=== PATIENT | male | born 1985 | race African-American/Black ===

== ENCOUNTER 2017-08-17 08:32 | Emergency (ER) | payer MEDICAID ==
[2017-08-17] MEDS ORDERED: IBUPROFEN 200 MG TAB PO ONE (09:14)
[2017-08-17] MEDS ORDERED: ACETAMINOPHEN 325 MG TAB PO ONE (09:14)
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
[2017-08-17 11:05] VITALS: BP 113/94
== END 2017-08-17 10:40 | disposition home or self-care (01) ==
LOC: CED 08:32
DX: S46.911A Strain of unspecified muscle, fascia and tendon at shoulder and upper arm level, right arm, initial encounter (principal); S46.912A Strain of unspecified muscle, fascia and tendon at shoulder and upper arm level, left arm, initial encounter; S19.9XXA Unspecified injury of neck, initial encounter; R20.2 Paresthesia of skin; F17.200 Nicotine dependence, unspecified, uncomplicated; X58.XXXA Exposure to other specified factors, initial encounter
CPT/HCPCS: 72050-PO; 73030-PO